=== PATIENT | female | born 1960 | race Caucasian/White ===

== ENCOUNTER → 2016-12-30 | Outpatient (CLI) | payer OTHER ==
[~2016-12-30] MED LIST: BACI1CAP4 PO; MULT-351 PO
--- NOTE | 2016-12-31 14:42 | Diagnostic Imaging Report ---
DIG BELKYS BILAT SCREEN W CAD COMPARISON: 11/28/2015, 11/08/2014, and 01/06/2013. INDICATION: Screening mammography. TECHNIQUE: Digital screening mammography was obtained with a computer-aided detection (CAD) system. FINDINGS: The breasts are heterogeneously dense, which may obscure small masses. Since prior examination, there has been development of a spiculated mass in the anterior right breast, best seen on CC view. On MLO view, this is likely in the central breast, but is not as well seen as with the CC view. The left breast remains stable without evidence of malignancy. IMPRESSION: New spiculated mass anterior and deep central aspect of the right breast. Recommend spot compression imaging of this region as well as true lateral views. Targeted right breast ultrasound will likely be required at the time of additional mammography. ACR BI-RADS Category 0: Incomplete. (Needs additional imaging evaluation). Result letter will be mailed to the patient. Note: At least 10% of breast cancer is not imaged by mammography. Dictated by: Dictated on workstation # [id number]
== END ==
LOC: RAD 11:06
PROVIDERS: ATTEND Family Medicine
DX: Z12.31 Encounter for screening mammogram for malignant neoplasm of breast (principal); R92.8 Other abnormal and inconclusive findings on diagnostic imaging of breast

== ENCOUNTER → 2017-01-12 | Outpatient (CLI) | payer OTHER ==
--- NOTE | 2017-01-12 14:25 | Diagnostic Imaging Report ---
INDICATION: Recall from screening. COMPARISON: 12/30/2016, 11/28/2015, 11/08/2014. TECHNIQUE: A unilateral right digital mammography with computer assisted detection was performed. FINDINGS: We performed multiple additional mammographic views of the right breast. The area of interest noted on the screening craniocaudad view appears to have represented summation effect of fibroglandular tissue. Spot compressions with craniocaudad rolled views failed to show any lesion. This is not visible in the orthogonal plane either. IMPRESSION: Additional mammographic views of the right breast are negative for malignancy. Followup in one year. ACR BI-RADS Category 1: Negative Result letter will be mailed to the patient. Note: At least 10% of breast cancer is not imaged by mammography. Dictated by: Dictated on workstation # [id number]
== END ==
LOC: RAD 12:55
PROVIDERS: ATTEND Family Medicine
DX: R92.8 Other abnormal and inconclusive findings on diagnostic imaging of breast (principal)